=== PATIENT | male | born 1975 | race African-American/Black ===

== ENCOUNTER 2023-03-10 03:26 | Emergency (ER) | payer OTHER, MEDICAID, SELFPAY ==
--- NOTE | 2023-03-10 03:28 | PC.NURSE ---
THIS RN CHECKED IN PT. PT THEN STATED, I GOTTA GO MAN, MY GRANDSON FINNA . THIS RN ASKED PT IF HE WANTED TO BE SEEN. PT THEN STATED, NAH MAN I GONNA LEAVE, I NEED TO GO SEE MY GRANDSON IN THE HOSPITAL . PT THEN PROCEEDED TO EXIT THE ENTRANCE OF THE ED. THIS RN VERBALIZED EDUCATION AND IMPORTANCE OF BEING EVALUATED BY EDP. PT CONTINUED TO WALK TOWARDS THE EXIT OF THE ED.
== END 2023-03-10 05:03 | disposition left against medical advice (07) ==
DX: Z53.21 Procedure and treatment not carried out due to patient leaving prior to being seen by health care provider (principal)
CPT/HCPCS: 99199

== ENCOUNTER 2023-03-14 05:32 | Emergency (ER) | payer OTHER, MEDICAID, SELFPAY ==
[2023-03-14] VITALS (12 sets, daily range): BP systolic 145–171; BP diastolic 94–110; PULSE 66–88; RESP 12–20; TEMP 36.4–36.6; O2SAT 92–100
--- NOTE | ~2023-03-14 | XR_ITS ---
Clinical Indication: Pain PA and lateral views of the chest: Comparison: None Findings: The lungs are clear, without evidence of focal consolidation or pleural effusion. Cardiome diastinal silhouette is within normal limits. Bones and soft tissues are unremarkable. Impression: Normal chest. Reviewed, dictated and finalized at [facility]. ATOLOGY TEACHER Impression: Normal chest.
--- NOTE | ~2023-03-14 | CT_ITS ---
EXAMINATION: CT chest abdomen pelvis w con DATE: 03/14/2023 08:15 INDICATION: Cough. Left flank pain, back pain. TECHNIQUE: Computed tomography (CT) of the chest, abdomen, and pelvis was performed with 100 CC Omnip aque 350 intravenous contrast. Automated exposure control and iterative reconstruction technique were employed. Exam dose: 2009.65 mGy-cm total exam DLP. COMPARISON: 03/14/2023 2 view chest FINDINGS: CHEST CT: Minimal right lower lobe atelectasis. The lungs are clear of infiltrate or consolidation. Moderate bilateral gynecomastia. Normal heart size. No pericardial or pleural effusion. No thoracic aortic aneurysm or dissection. No hilar or mediastinal mass lesion or lymphadenopathy. ABDOMEN/PELVIS CT: The gallbladder is contracted. No hepatic, splenic, pancreatic, adrenal or solid renal space-occupyin g mass lesion is detected. Posterior lower pole right renal 11 mm exophytic cyst. A subtle pinpoint nonobstructing lower pole right renal calculus and left 2 x 5 mm nonobstructing jos culus are noted. No ureteral calculus or hydroureteronephrosis. The urinary bladder is relatively evacuated. There is moderate diffuse thickening of the urinary blad marylu wall which may be due to the relatively evacuated state or cystitis. No prostatomegaly is noted. Normal caliber of the abdominal aorta. No intraperitoneal or retroperitoneal or pelvic mass lesion or adenopathy or ascites. Normal appendix. There are numerous diverticula of the colon; no CT evidence of diverticulitis. No major wel obstruction, bowel wall thickening, pneumatosis or intraperitoneal free air is detected. Approximately 2.3 cm wide fat-containing umbilical hernia. No suspicious osteolytic or osteoblastic lesions. IMPRESSION: Minimal right lower lobe atelectasis Pinpoint nonobstructing lower pole right renal calculus 2 x 5 mm nonobstructing lower pole left renal calculus No ureteral calculus or hydroureteronephrosis Diffuse thickening urinary bladder wall which may be due to the evacuated state cystitis; recommend c orrelation with urinalysis Normal appendix Diverticulosis of the colon; no CT evidence of diverticulitis Reviewed, dictated and finalized at [facility]. Reviewed, dictated and finalized at [facility]. STANT CLINICAL NURSE MANAGER IMPRESSION: Minimal right lower lobe atelectasis Pinpoint nonobstructing lower pole right renal calculus 2 x 5 mm nonobstructing lower pole left renal calculus No ureteral calculus or hydroureteronephrosis Diffuse thickening urinary bladder wall which may be due to the evacuated state cystitis; recommend correlation with urinalysis Normal appendix Diverticulosis of the colon; no CT evidence of diverticulitis
[2023-03-14 05:52] LABS: Appearance Urine Clear (Clear); Bilirubin Urine Negative (Negative); Blood Urine Negative (Negative); Color Urine Yellow (Yellow); Glucose Urine UA Negative (Negative); Ketones Urine Negative (Negative); Leukocyte Esterase Ur Negative LEU/UL (Negative); Nitrate Urine Negative (Negative); Protein Urine Negative (Negative); Specific Grav Ur 1.013 (1.001-1.035); Urobilinogen Urine 0.2 mg/dL (<2.0); pH Urine 5.5 (5.0-9.0)
[2023-03-14 05:59] LABS: Add Urine Microscopic? NO
--- NOTE | 2023-03-14 06:00 | PC.NURSE ---
Patient states the pain in his LUQ wraps around his left flank and into his left shoulder.
[2023-03-14 06:10] LABS: Basophils Percent Auto 0.5 % (0.2-1.2); Eosinophils Absolute Auto 0.2 K/mm3 (0-0.3); Eosinophils Percent Auto 3.3 % (0-4.4); Hematocrit 44.8 % (42.0-52.0); Hemoglobin 14.2 g/dL (14.0-18.0); Immature Granulocyte Absolute 0.06 K/mm3 (0.00-0.031); Lymphocytes Absolute Auto 2.81 K/mm3 (0.9-3.2); Mean Corpuscular HGB Conc 31.7 g/dl (32-36); Mean Corpuscular Hemoglobin 29.1 pg (26-34); Mean Corpuscular Volume 91.8 fl (80-100); Mean Platelet Volume 9.7 fl (7.4-10.4); Monocytes Absolute Auto 0.4 K/mm3 (0.1-0.6); Monocytes Percent Auto 6.9 % (2.6-8.5); Neutrophils Absolute Auto 2.6 K/mm3 (1.3-6.7); Neutrophils Percent Auto 42.3 % (45.5-73.1); Platelet Count Result 360 k/mm3 (150-375); Red Blood Count 4.88 M/mm3 (4.6-6.20); Red Cell Distribution Width 12.9 % (11.5-14.5); White Blood Count 6.1 K/mm3 (4.5-10.0)
[2023-03-14 06:21] LABS: Alanine Aminotransferase 28 U/L (6-50); Alkaline Phosphatase 87 U/L (38-126); Anion Gap 4 mmol/L (8-16); Aspartate Amino Transferase 34 U/L (17-59); Bilirubin,Total 0.4 mg/dL (0.2-1.3); Blood Urea Nitrogen 15 mg/dL (9-20); Calcium 9.4 mg/dL (8.4-10.2); Carbon Dioxide 27 mmol/L (22-30); Chloride 104 mmol/L (98-107); Estimated CRCL calculation 117 ml/min; Estimated Glomerular Filt Rate > 60; Glucose 105 mg/dL (65-110); Lipase 102 U/L (23-300); Potassium 4.3 mmol/L (3.4-5.0); Sodium 135 mmol/L (137-145)
--- NOTE | 2023-03-14 06:33 | ECG_ITS ---
Measurements Intervals [place] Rate: 66 P: -23 WV: 129 QRS: 3 QRSD: 98 T: 35 QT: 413 QTc: 436 Interpretive Statements SINUS RHYTHM WITH SINUS ARRHYTHMIA VOLTAGE CRITERIA FOR LVH BASELINE WANDER- V2-V3 BORDERLINE ECG NO PREVIOUS ECG AVAILABLE FOR COMPARISON Electronically Signed On 03-14-2023 6:49:02 FRENCH COMBER by Ras Camacho D.O.
[2023-03-14 06:48] LABS: Prothrombin Time 13.3 Seconds (11.1-14.7)
[2023-03-14 06:49] LABS: Partial Thromboplastin Time 29.6 SECONDS (22.3-36.8)
[2023-03-14 07:01] LABS: Troponin I 0.014 ng/mL (0.000-0.034)
--- NOTE | 2023-03-14 07:08 | ED.ABDPAIN ---
HPI - Abdominal Pain General Chief Complaint: Abdominal Pain Stated Complaint: abd/back pain Time Seen by Provider: 03/14/23 06:53 History of Present Illness HPI narrative: 47-year-old male presenting to the emergency department for evaluation of left flank pain. Patient states pain started approximately a week ago and patient states the pain is worsen. Patient indicates that the flank radiates around to his left upper quadrant. Patient does report the pain is worsened with coughing and moving. Patient denies any associated nausea vomiting diarrhea constipation or shortness of breath. Patient declined any medication for pain control. Related Data Allergies Allergy/AdvReac Type Severity Reaction Status Date / Time No Known Allergies Allergy Verified 03/14/23 06:06 Review of Systems Review of Systems: All systems reviewed & are unremarkable except as noted in HPI and below Exam Narrative: APPEARANCE: Well appearing, no pain, no distress, well-nourished. HEAD: normocephalic, atraumatic. EYES: PERRLA/EOMI, conjunctivae clear. NOSE: Normal no drainage NECK: Supple. No adenopathy, no masses. RESPIRATORY: Airway patent, respirations nonlabored. Clear to auscultation bilaterally, no rales, rhonchi, wheezing. CARDIOVASCULAR: Regular rate and rhythm without murmurs rubs or gallops. ABDOMINAL: Left CVA tenderness to palpation MUSCULOSKELETAL: Moves all extremities. Strength/ROM intact, No edema, No calf tenderness. NEURO: Alert. Cranial nerves II through XII intact. Grossly intact SKIN: Warm, dry. Normal Color Course Course Emergency Course: 47-year-old male presenting to the emergency department for evaluation of left CVA tenderness. Patient is afebrile with no leukocytosis and a stable hemoglobin of 14.2. INR is 1.0 no acute abnormalities on the patient's CMP including a normal T bili AST ALT alk-phos and troponin. Chest x-ray shows a normal chest. EKG shows normal sinus rhythm with no evidence acute STEMI. CT abdomen pelvis shows right lower lobe atelectasis, nonobstructing renal calculi, no ureteral calculi Vital Signs Vital signs: Vital Signs Temperature 97.5 F L 03/14/23 05:33 Pulse Rate 75 03/14/23 05:33 Respiratory Rate 16 03/14/23 05:33 Blood Pressure 151/94 H 03/14/23 05:33 Pulse Oximetry 99 03/14/23 05:33 Oxygen Delivery Room Air 03/14/23 05:33 Temperature 97.9 F 03/14/23 07:46 Pulse Rate 66 03/14/23 10:40 Respiratory Rate 16 03/14/23 10:40 Blood Pressure 166/105 H 03/14/23 10:40 Pulse Oximetry 98 03/14/23 10:40 Oxygen Delivery Room Air 03/14/23 05:33 MDM - Abdominal Pain Differential Diagnosis Differential diagnosis: Likely abdominal pain, calculus of kidney, diverticulitis, gastroenteritis and small bowel obstruction Lab Data Attestation: I reviewed the patient's lab results. 03/14/23 05:59 03/14/23 05:59 Labs: Lab Results 03/14/23 03/14/23 03/14/23 Range/Units 05:45 05:59 09:25 WBC 6.1 (4.5-10.0) K/mm3 RBC 4.88 (4.6-6.20) M/mm3 Hgb 14.2 (14.0-18.0) g/dL Hct 44.8 (42.0-52.0) % MCV 91.8 (80-100) fl MCH 29.1 (26-34) pg MCHC 31.7 L (32-36) g/dl RDW 12.9 (11.5-14.5) % Plt Count 360 (150-375) k/mm3 MPV 9.7 (7.4-10.4) fl Immature Gran % (Auto) 1.0 H (0-0.5) % Neut % (Auto) 42.3 L (45.5-73.1) % Lymph % (Auto) 46.0 H (18.3-44.2) % Randolph % (Auto) 6.9 (2.6-8.5) % Eos % (Auto) 3.3 (0-4.4) % Baso % (Auto) 0.5 (0.2-1.2) % Lymph # (Auto) 2.81 (0.9-3.2) K/mm3 Randolph # (Auto) 0.4 (0.1-0.6) K/mm3 Eos # (Auto) 0.2 (0-0.3) K/mm3 Baso # (Auto) 0.0 (0.0-0.1) K/mm3 Abs Immat Gran (auto) 0.06 H (0.00-0.031) K/mm3 Absolute Neuts (auto) 2.6 (1.3-6.7) K/mm3 Absolute Nucleated RBC 0.0 (0.0-0.012) K/mm3 Nucleated RBC % 0.0 (0.0-0.2) % PT 13.3 (11.1-14.7) Seconds INR 1.0 APTT 29.6 (22.3-36.8) SECONDS D-Dimer
[2023-03-14 07:39] LABS: D Dimer < 0.27 ug/mL (<0.48)
--- NOTE | 2023-03-14 08:05 | PC.NURSE ---
Pt to CT via W/C
[2023-03-14 09:51] LABS: Troponin I < 0.012 ng/mL (0.000-0.034)
--- NOTE | 2023-03-14 15:06 | ECG_ITS ---
Measurements Intervals [place] Rate: 65 P: 26 FL: 135 QRS: 2 QRSD: 94 T: 44 QT: 395 QTc: 412 Interpretive Statements SINUS RHYTHM VOLTAGE CRITERIA FOR LVH BASELINE WANDER- I, II, III, AVL, AVF, V4-V6 BORDERLINE ECG COMPARED TO ECG 03/14/2023 06:41:23 NO SIGNIFICANT CHANGES Electronically Signed On 03-14-2023 16:29:59 SOLE STITCHER HAND by Ras Camacho D.O.
== END 2023-03-14 10:40 | disposition home or self-care (01) ==
PROVIDERS: Emergency Medicine; Emergency Provider Emergency Medicine
DX: R10.12 Left upper quadrant pain (principal)
CPT/HCPCS: 36415; 71046; 71260; 74177; 80053; 81003; 83690; 84484; 85025; 85380; 85610; 85730; 93005; 99284; Q9967

== ENCOUNTER 2023-04-02 00:29 | Emergency (ER) | payer OTHER, MEDICAID, SELFPAY ==
[2023-04-02 00:32] VITALS: BP 128/94; PULSE 79; RESP 20; TEMP 36.4; O2SAT 99
--- NOTE | 2023-04-02 03:34 | ED.EYEPROB ---
HPI - Eye Problem General Chief complaint: Eye Problems Stated complaint: L eye pain Time Seen by Provider: 04/02/23 02:51 Source: patient Limitations: no limitations History of Present Illness HPI Narrative: Patient is a 47-year-old male presents to the emergency department complaining crusting and difficulty opening his left eye past 24 hours. Patient denies any preceding injuries or recent illness. Patient denies fever, vomiting, sore throat, nasal congestion, ear pain, headache, vision changes, eye pain. Patient has not tried anything for the I crustiness and seems to be isolated to just his left eye. Patient denies regular seasonal allergies. Patient denies anyone having similar symptoms around him. Related Data Allergies Allergy/AdvReac Type Severity Reaction Status Date / Time No Known Allergies Allergy Verified 04/02/23 01:52 Review of Systems Review of Systems: A 10 system review of systems was completed on the patient and is negative except for what is stated in the HPI. Nursing and ancillary documentation was reviewed. PMFSH Comments At time of signature, I have reviewed and agree with nursing past medical, surgical, social and family history unless otherwise noted. Please see the nursing chart for further information. There is no relevant family history pertinent to the presenting complaint. Exam Narrative: CONST: No acute distress. Well nourished. HENMT: Head is normocephalic and atraumatic. Moist mucous membranes. No posterior oropharynx erythema. EYES: No conjunctival icterus, or pallor. PERRL. Mild conjunctival injection of the left eye with limbic sparing. Scant crusting of the eyelids of the left eye. Scant purulent discharge from the left eye. NECK: No meningeal signs. No palpable cervical lymphadenopathy. RESP: Able to speak in full sentences. CARDIO: Regular rate. Regular rhythm. GI: Nondistended. SKIN: No rashes or lesions noted on exposed skin. NEURO: Oriented x3. Moves all extremities. EXTREM/MSK/BACK: No pedal edema. PSYCH: Normal affect. Course Vital Signs Vital signs: Vital Signs Temperature 97.6 F 04/02/23 00:32 Pulse Rate 79 04/02/23 00:32 Respiratory Rate 20 04/02/23 00:32 Blood Pressure 128/94 H 04/02/23 00:32 Pulse Oximetry 99 04/02/23 00:32 Oxygen Delivery Room Air 04/02/23 00:32 Temperature 97.6 F 04/02/23 00:32 Pulse Rate 79 04/02/23 00:32 Respiratory Rate 20 04/02/23 00:32 Blood Pressure 128/94 H 04/02/23 00:32 Pulse Oximetry 99 04/02/23 00:32 Oxygen Delivery Room Air 04/02/23 00:32 MDM - Eye Problem MDM Narrative Medical decision making narrative: Patient presents with the above complaint. Initial vitals are remarkable for no significant abnormalities. Physical examination as noted above. Plan discussed: Antibiotic eyedrops. Patient is in no acute distress, vital signs stable and remained stable throughout ED visit. Counseled patient regarding diagnostic results and potential diagnosis. Anticipatory guidance provided. Patient instructed to follow up with PCP within 1 week. Patient counseled on: false reassurance from an emergency department evaluation; no current evidence of a medical emergency; return immediately for any new, recurrent, worsening, concerning, or refractory symptoms. Patient prescribed antibiotic eyedrops. Prescription sent to preferred pharmacy. Medications discussed with patient. Additional verbal and printed discharge instructions were given and discussed with the patient. Patient verbally acknowledges understanding of condition and discharge instructions. All questions were answered to the patient's satisfaction. Patient is in agreement with the plan of care. The patient is stable for discharge and was discharged without incident. Differential Diagnosis Differential diagnosis: Likely conjunctivitis Discharge Plan Discharge Clinical Impression: Bacterial conjunctivitis Patient Dispo
[2023-04-02] MEDS: POLYMYXIN/TRIMETHOPRIM OPHTH 10 ML DROPS 1 DROP EACH EYE (04:12)
[2023-04-02 04:16] VITALS: BP 132/89; PULSE 74; RESP 19; O2SAT 99
== END 2023-04-02 04:17 | disposition home or self-care (01) ==
PROVIDERS: Emergency Provider Student in an Organized Health Care Education/Training Program
DX: H10.89 Other conjunctivitis (principal)
CPT/HCPCS: 99283; A9270